=== PATIENT | female | born 1955 | race Caucasian/White ===

== ENCOUNTER 2017-01-22 10:32 | Emergency (ER) | payer SELFPAY ==
[~2017-01-22] VITALS: Ht 152.4 cm; Wt 76.0 kg
[2017-01-22] MEDS ORDERED: LEVO75 PO (10:47)
[2017-01-22] MEDS ORDERED: ALEN10 PO (10:47)
[2017-01-22] MEDS ORDERED: CALC25 PO (10:47)
[2017-01-22] MEDS ORDERED: OMEP20 PO (10:47)
[2017-01-22] MEDS ORDERED: METF500T4 PO (10:47)
[2017-01-22] MEDS ORDERED: BECLNS NASAL (10:47)
[2017-01-22] MEDS ORDERED: HYDROCODONE/ACETAMINOPHEN 10-325 MG TABLET PO ONE (11:15)
[2017-01-22 14:29] VITALS: BP 139/72
== END 2017-01-22 14:30 | disposition home or self-care (01) ==
LOC: EMS 10:36
DX: S13.4XXA Sprain of ligaments of cervical spine, initial encounter (principal); S23.3XXA Sprain of ligaments of thoracic spine, initial encounter; S33.5XXA Sprain of ligaments of lumbar spine, initial encounter; E11.9 Type 2 diabetes mellitus without complications; K21.9 Gastro-esophageal reflux disease without esophagitis; J45.909 Unspecified asthma, uncomplicated; V49.50XA Passenger injured in collision with unspecified motor vehicles in traffic accident, initial encounter; Y93.89 Activity, other specified; Y92.89 Other specified places as the place of occurrence of the external cause; Y99.8 Other external cause status
CPT/HCPCS: 72072; 72100; 72125; 99284